=== PATIENT | female | born 1990 | race Asian ===

== ENCOUNTER 2020-01-04 22:44 | Inpatient (IN) | payer OTHER ==
[~2020-01-04] VITALS: Ht 160 cm; Wt 74.8 kg
[2020-01-04] MEDS ORDERED: PREN-380 PO (22:53)
[2020-01-04] MEDS ORDERED: FERR-252 PO (22:53)
[2020-01-04] MEDS ORDERED: OSC500 PO (22:53)
[2020-01-04] MEDS ORDERED: AMPICILLIN 1,000 MG VIAL ONE (22:54)
[2020-01-04] MEDS ORDERED: NALBUPHINE 10 MG/ML AMP IVP PRN (22:55)
[2020-01-04] MEDS ORDERED: METHYLERGONOVINE 0.2 MG/ML AMP IM PRN (22:55)
[2020-01-04] MEDS ORDERED: PROMETHAZINE 25 MG/ML VIAL IVP PRN (22:55)
[2020-01-04] MEDS ORDERED: CARBOPROST 250 MCG/ML AMP IM PRN (22:55)
[2020-01-04] MEDS ORDERED: LACTATED RINGERS 500 ML IV ONE (22:55)
[2020-01-04] MEDS ORDERED: MISOPROSTOL 25 MCG TAB ONE (23:25)
[2020-01-04] MEDS ORDERED: MISOPROSTOL 25 MCG TAB VG SCH (23:30)
[2020-01-04 23:31] LABS: HEMATOCRIT 38.8 % (36-48); HEMOGLOBIN 13.4 g/dL (12.0-16.0); MEAN CORPUSCULAR HEMOGLOBIN 33 pg (27-31); MEAN CORPUSCULAR HGB CONC 35 g/dL (33-37); MEAN CORPUSCULAR VOLUME 95.6 fL (80-94); PLATELET COUNT (AUTO) 168 K/uL (140-450); RED BLOOD CELL COUNT(AUTO) 4.06 MIL/uL (4.20-5.40); RED CELL DISTRIBUTION WIDTH 14.4 % (11.6-13.7)
[2020-01-04 23:35] LABS: APPEARANCE,URINE CLEAR (CLEAR); BILIRUBIN,URINE NEGATIVE (NEGATIVE); BLOOD, URINE TRACE-I (NEGATIVE); COLOR,URINE YELLOW (YELLOW); LEUKOCYTE ESTERASE ,URINE NEGATIVE (NEGATIVE); NITRITE, URINE NEGATIVE (NEGATIVE); PH,URINE 6.5 (5.0-9.0); UGLUCOSE NEGATIVE (NEGATIVE)
[2020-01-04 23:53] LABS: RBC,URINE 0-5 /HPF (0-5); WBC,URINE 0-5 /HPF (0-5)
[2020-01-04 23:57] LABS: ALBUMIN 2.6 g/dL (3.4-5.0); ANION GAP 12.2 (8-16); CARBON DIOXIDE 22.5 mmol/L (21-32); CREATININE 0.5 mg/dL (0.6-1.3); POTASSIUM 3.7 mmol/L (3.5-5.1); TOTAL BILIRUBIN 0.3 mg/dL (0.0-1.0)
[2020-01-04 23:58] LABS: LYMPHOCYTES % (MANUAL) 18 % (20-46); MONOCYTES % (MANUAL) 8 % (5-12)
[2020-01-05] MEDS ORDERED: fentaNYL 0.05 MG/ML VIAL IVP PRN (01:15)
[2020-01-05] MEDS ORDERED: AMPICILLIN 1,000 MG VIAL ONE ×5 (03:05→18:25)
[2020-01-05] MEDS ORDERED: MISOPROSTOL 25 MCG TAB ONE (03:51)
[2020-01-05] MEDS: AMPICILLIN 1,000 MG in NACL 0.9% MINI-BAG PLUS 50 ML IV SCH ×4 (07:00→18:38)
[2020-01-05] MEDS: LACTATED RINGERS 1,000 ML IV SCH ×2 (08:15→10:46)
[2020-01-05] MEDS ORDERED: OXYTOCIN 20 UNITS/LR PREMIX 1,000 ML IV ONE (08:36)
[2020-01-05] MEDS ORDERED: OXYTOCIN 20 UNITS in LACTATED RINGERS 1,000 ML IV SCH (09:10)
[2020-01-05] MEDS ORDERED: EPIDURAL KEYS MC ONE (09:59)
[2020-01-05] MEDS ORDERED: BUPIVACAINE 0.125%/NS PREMIX 0 ML ONE (10:00)
[2020-01-05] MEDS ORDERED: ROPIVACAINE 0.2%/NS PREMIX 200 ML EPI ONE (11:23)
[2020-01-05] MEDS ORDERED: ONDANSETRON 4 MG/2 ML VIAL IVP PRN (14:15)
[2020-01-05] MEDS ORDERED: ONDANSETRON 4 MG/2 ML VIAL ONE (14:16)
[2020-01-06] MEDS ORDERED: OXYTOCIN 20 UNITS/LR PREMIX 1,000 ML IV ONE (01:19)
[2020-01-06] MEDS ORDERED: BENZOCAINE/MENTHOL 20%-0.5% 60 GM CAN TP PRN (01:20)
[2020-01-06] MEDS ORDERED: MEASLES, MUMPS, AND RUBELLA 1 VIAL SQVAC PRN (01:20)
[2020-01-06] MEDS ORDERED: METHYLERGONOVINE 0.2 MG/ML AMP IM PRN (01:20)
[2020-01-06] MEDS ORDERED: METHYLERGONOVINE 0.2 MG TAB PO PRN (01:20)
[2020-01-06] MEDS ORDERED: OXYTOCIN 10 UNITS/ML VIAL IM PRN (01:20)
[2020-01-06] MEDS ORDERED: IBUPROFEN 600 MG TAB PO PRN (01:20)
[2020-01-06] MEDS: IBUPROFEN 800 MG TAB PO PRN ×2 (03:16→12:01)
--- NOTE | 2020-01-06 08:32 | NUR ---
PATIENT HAS BEEN SCREENED AND CATEGORIZED LOW NUTRITION RISK. PATIENT WILL BE SEEN WITHIN 7 DAYS OF ADMISSION. 01/11/[address]
[2020-01-07 08:20] LABS: HEMATOCRIT 33.4 % (36-48)
[2020-01-07] MEDS: IBUPROFEN 800 MG TAB PO PRN (12:03)
[2020-01-07] MEDS: BISACODYL 5 MG TABEC PO PRN (13:31)
[2020-01-08] MEDS: IBUPROFEN 800 MG TAB PO PRN (03:46)
[2020-01-08] MEDS: BISACODYL 5 MG TABEC PO PRN (08:32)
[2020-01-08] MEDS ORDERED: DOCU-299 PO (08:42)
[2020-01-08] MEDS ORDERED: IBUP-2213 PO (08:42)
== END 2020-01-08 14:40 | disposition home or self-care (01) | DRG 768 ==
LOC: MLD 22:44 → MFCC 01-06 03:30
PROVIDERS: ADMIT Obstetrics & Gynecology; ATTEND Obstetrics & Gynecology
PROC: 10E0XZZ Delivery of Products of Conception, External Approach (ICD-10-PCS; principal; 2020-01-06)
PROC: 0UQC0ZZ Repair Cervix, Open Approach (ICD-10-PCS; 2020-01-06)
PROC: 0HQ9XZZ Repair Perineum Skin, External Approach (ICD-10-PCS; 2020-01-06)
PROC: 00HU33Z Insertion of Infusion Device into Spinal Canal, Percutaneous Approach (ICD-10-PCS; 2020-01-06)
PROC: 3E0R3BZ Introduction of Anesthetic Agent into Spinal Canal, Percutaneous Approach (ICD-10-PCS; 2020-01-06)
PROC: 3E0234Z Introduction of Serum, Toxoid and Vaccine into Muscle, Percutaneous Approach (ICD-10-PCS; 2020-01-07)
DX: O99.284 Endocrine, nutritional and metabolic diseases complicating childbirth (principal); Z37.0 Single live birth; E03.9 Hypothyroidism, unspecified; O99.824 Streptococcus B carrier state complicating childbirth; O71.3 Obstetric laceration of cervix; O70.0 First degree perineal laceration during delivery; Z3A.40 40 weeks gestation of pregnancy; Z23 Encounter for immunization
CPT/HCPCS: 36415; 51702; 80053; 81001; 85018; 85025; 86592; 86886; 86900; 86901; 90707; J0290; J2405; J2590; J2795; J3010; J3490; J7120